=== PATIENT | male | born 1970 | race Hispanic/Latino ===

== ENCOUNTER 2021-05-10 18:44 | Emergency (ER) | payer OTHER ==
[~2021-05-10] VITALS: Ht 167.6 cm; Wt 83.9 kg
[2021-05-10 18:45] VITALS: BP 147/98
[2021-05-10 22:27] VITALS: BP 136/88
[2021-05-10] MEDS ORDERED: KETOROLAC 60 MG VIAL (30MG/ML) IM ONE (22:30)
[2021-05-10] MEDS ORDERED: INDO50CA97 PO (23:23)
== END 2021-05-10 23:43 | disposition home or self-care (01) ==
LOC: EDH 18:44
DX: M17.12 Unilateral primary osteoarthritis, left knee (principal); M10.9 Gout, unspecified; Z79.1 Long term (current) use of non-steroidal anti-inflammatories (NSAID)
CPT/HCPCS: 36415; 73562; 84550; 96372; 99284; J1885